=== PATIENT | female | born 1955 | race Caucasian/White ===

== ENCOUNTER → 2018-11-12 | Outpatient (REF) ==
[2015-10-29 16:46] VITALS: BMI 27.6
[~2018-11-12] MED LIST: ASCO-182 PO; CALC-1046; CALC1CAP26 PO; CHOL200074 PO; ENOX80DI8 SQ; LOR5/325 PO; MIRT-17 PO; MULT-1335 PO; OMEG-36 PO; OMEG500C7 PO; PHEN100 PO; PHEN100C82 PO; WARF-1 PO
--- NOTE | 2018-11-12 12:41 | RADIOLOGY IMAGING REPORT ---
FACILITY: [facility] PATIENT NAME: Elena Agosto : 1955 MR: [id number] V: [id number] EXAM DATE: ORDERING PHYSICIAN: MARIBEL BLANTON TECHNOLOGIST: Location: [facility] Patient: Elena Agosto : 1955 Visit/Account:[id number] Date of Sevice: 11/12/2018 HIP LEFT Indication: Hip pain. Comparison: December 27, 2012 Findings: Interval progression osteoarthritic changes of the left hip with subchondral sclerosis and cystic ruba nge of the articular margins and remodeling of the femoral head. No acute fracture or dislocation. Mild degenerative changes of the right. Lower lumbar spondylosis. IMPRESSION: 1. Severe left hip osteoarthritis, progressed when compared to December 2012 Report Dictated By: Horacio Smith MD at 11/12/2018 12:33 PM Report E-Signed By: Horacio Smith MD at 11/12/2018 12:34 PM WSN:[id number]
== END ==
LOC: RAD 11:58 → EDSTATUS 11-18 08:37
PROVIDERS: ATTEND Orthopaedic Surgery Orthopaedic Surgery of the Spine
DX: M81.0 Age-related osteoporosis without current pathological fracture (principal); M16.12 Unilateral primary osteoarthritis, left hip